=== PATIENT | male | born 1960 | race Caucasian/White ===

== ENCOUNTER 2024-06-05 12:29 | Inpatient (IN) | payer OTHER, SELFPAY ==
[2024-06-05] VITALS (17 sets, daily range): BP systolic 123–187; BP diastolic 74–112; BMI 31.4
--- NOTE | 2024-06-05 05:13 | ED.GENMED ---
History of Present Illness
General
Chief Complaint: Chest Pain
Time Seen by Provider: 06/05/24 05:09
History of Present Illness
History of Present Illness:
TIME OF INITIAL ENCOUNTER: 5:10 AM
HPI: The patient started having some discomfort in the chest described as 'heartburn' that started about 17 hours prior to arrival. He later described a pressure sensation in the upper abdomen/lower chest. He has a history of high blood pressure.
EXAM:
GENERAL: Well appearing in no distress, athletic build
HEENT: Moist oral mucosa
CARDIOVASCULAR: No murmurs, normal heart rate, regular rhythm, No chest wall tenderness
PULMONARY: No respiratory distress, breath sounds are clear and equal
ABDOMEN: Soft with no peritoneal signs, no tenderness
NEUROLOGIC: Excellent strength all extremities, no coordination deficits
PSYCHIATRIC: Appropriate mental status, normal insight and judgement
EXTREMITIES: Nontender, no edema, moves all extremities equally
SKIN: No rash, no lesions
NUMBER AND COMPLEXITY OF PROBLEMS ADDRESSED AT THE ENCOUNTER
� Chronic conditions affecting care: High blood pressure
� Acute Exacerbation and/or Progression of Chronic Illness: This is an acute problem
� Differential Diagnosis includes: STEMI, non-STEMI, GERD, noncardiac chest wall pain
AMOUNT AND/OR COMPLEXITY OF DATA TO BE REVIEWED AND ANALYZED
� I performed an independent evaluation of and my interpretation is:
EKG: Sinus 81, inferior STEMI with reciprocal changes, PVCs noted
CT:
X-rays:
Laboratory Studies: CBC unremarkable, minimal transaminase elevation, renal function normal, troponin pending
Other:
� Review of other/old records: I reviewed records, patient had a relatively unremarkable stress echo [address] Sheikh
� Clinical information was obtained by an independent historian: I spoke to the at bedside
� Prescriptions/Medications Considered but not given:
� Further testing considered but not performed:
RISK OF COMPLICATIONS AND/OR MORBIDITY OR MORTALITY OF PATIENT MANAGEMENT
� Social determinants of health affecting care: Lives at home
� Discussion with other providers: I discussed case with Dr. Lagunas at approximately 5:15 AM
� Escalation of care including admission/observation vs risk of discharge considered: The patient has evidence of STEMI�will be admitted to the hospital
ANY OTHER UPDATES:
5:25 AM: I reassessed patient. The patient does report some improvement of his chest discomfort on the nitroglycerin drip. Overall he states that his pain is much better currently compared to what it was earlier in the morning.
5:40 AM: Dr. Lagunas evaluated patient at bedside and taken patient up to the Digital Retoucher
Phy Exam
Physical Exam
Physical Exam:
See HPI
Scores
Heart Score for Chest Pain Patients
STEMI patient?: Not applicable
Course
Orders/Labs/Results
Orders:
Orders
06/05/24 04:59
Electrocardiogram (*1) Urgent
Reason for Study: Chest Pain
EKG- Treatment ONCE
06/05/24 05:16
Complete Blood Count/With Diff Urgent
Comprehensive Metabolic Panel Urgent
Troponin I Urgent
06/05/24 05:17
Nitroglycerin 100 mg/250 ml [Nitroglycerin Premix] 100 mg in 250 ml .ROUTE .STK-MED
06/05/24 05:30
Nitroglycerin 100 mg/250 ml [Nitroglycerin Premix] 100 mg in 250 ml IV PER PROTOCOL
Initial dose in mcg/min, then titrate:: 5
Titrate to keep:: Chest Pain Free
Titrate by mcg/min:: 5 mcg/min, may increase by 10 mcg/min if dose > 20 mcg/min
Frequency of titrations (minutes):: every 3-5 minutes
Maximum dose in mcg/min:: 200
Begin to taper infusion when:: Remained at goal for 2hrs
Taper by mcg/min:: 5 mcg/min
Frequency of taper (minutes) if patient maintains goal:: 30
Taper to off?: Yes
If infusion off & no longer maintaining goal:: Contact Provider
06/05/24 05:37
Fentanyl Citrate/Pf [Sublimaze] 100 mcg .ROUTE .STK-MED ONE
Midazolam HCl [Versed] 2 mg .ROUTE .STK-MED ONE
Verapamil Injectable [Isoptin/Verapamil Injection] 5 mg .ROUTE .STK-MED ONE
06/05/24 05:38
Heparin 10,000 units .ROUTE .STK-MED ONE
Heparin 1000 Units/500 ml [Heparin] 1,000 units in 500 ml .ROUTE .STK-MED
Heparin Sodium,Porcine/Ns/Pf [Heparin 2000 Units/1000 ml] 2,000 unit in 1,000 ml .ROUTE .STK-MED
Lidocaine HCl/Pf [Xylocaine-Mpf 1% Vial] 100 mg .ROUTE .STK-MED ONE
Nitroglycerin [Tridil] 1,500 mcg .ROUTE .STK-MED ONE
Abnormal Lab Results
06/05/24
05:16
Absolute Monos (auto) 0.7 H 10^3/uL
(0.1-0.6)
Monocytes % 11.0 H %
(1.7-9.3)
Glucose 125 H mg/dl
(70-99)
Calcium 10.3 H mg/dl
(8.4-10.2)
AST 65 H U/L
(17-59)
ALT 63 H U/L
(0-50)
Albumin 5.1 H g/dl
(3.5-5.0)
06/05/24 05:16
06/05/24 05:16
Vital Signs
Initial and Last Documented VS:
Initial Vital Signs
Temp Pulse Resp BP Pulse Ox
36.6 C 80 24 184/106 98
06/05/24 05:02 06/05/24 05:02 06/05/24 05:02 06/05/24 05:02 06/05/24 05:02
Last Documented Vital Signs
Temp Pulse Resp BP Pulse Ox
36.6 C 74 17 186/99 98
06/05/24 05:02 06/05/24 05:26 06/05/24 05:26 06/05/24 05:26 06/05/24 05:26
*Critical Care Note
Total Time (30-74mins, 75-104mins- exclusive of procedures): Not Applicable
ED Attending Note
-
Portions of this chart may have been created with voice recognition software.� Occasional wrong word or��sound alike� substitutions may have occurred due to the inherent limitations of voice recognition software.
Discharge Plan
Departure
Patient Disposition: [employer]
Date of Disposition: 06/05/24
Time of Disposition: 05:17
Presentation/result/management discussed w/ accepting MD/DO: dr lagunas
Discharge Problem:
ST elevation OR (STEMI)
Referrals:
UNKNOWN - PT DOES,NOT KNOW [Unknown Provider] -
Interventions
Interventions:
*Risk Screen - Suicide Last Done: 06/05/24 05:02
*General Assessment Last Done: 06/05/24 05:36
*Neglect/Abuse Screening Last Done: 06/05/24 05:02
*ED COVID-19 Vaccine History Last Done: 06/05/24 05:35
ED- Cardiac Assessment Last Done: 06/05/24 05:30
Discharge Date and Time
Print Language: ESTONIAN
[2024-06-05] MEDS: NITROGLYCERIN PREMIX 250 IV (05:19)
[2024-06-05 05:27] LABS: % Basophils 0.8 % (0-2); % Eosinophils 1.9 % (0-6); % Immature Granulocytes 0.5 % (0-0.5); % Lymphocytes 28.5 % (20.5-51.1); % Neutrophils 57.3 % (42.2-75.2); Absolute Basophils 0.1 10^3/uL (0-0.2); Absolute Eosinophils 0.1 10^3/uL (0-0.7); Absolute Lymphocytes 1.8 10^3/uL (1.2-3.4); Absolute Monocytes 0.7 10^3/uL (0.1-0.6); Absolute Neutrophils 3.7 10^3/uL (1.4-6.5); Hematocrit 47.3 % (39.0-52.0); Hemoglobin 16.3 g/dL (13.0-18.0); Mean Corp Hgb Conc. 34.5 g/dL (33.0-37.0); Mean Corpuscular Hgb 30.8 pg (27.0-31.0); Mean Corpuscular Volume 89.4 fL (80.0-94.0); Mean Platelet Volume 9.2 fL (7.4-10.4); Nucleated Red Blood Cells % 0 % (-); Platelet Count 195 10^3/uL (130-400); Red Blood Cell Count 5.29 10^6/uL (4.70-6.10); Red Cell Dist. Width 13.3 % (11.5-14.5); White Blood Cell Count 6.4 10^3/uL (4.8-10.8)
[2024-06-05 05:37] LABS: ALT (SGPT) 63 U/L (0-50); AST (SGOT) 65 U/L (17-59); Albumin 5.1 g/dl (3.5-5.0); Alkaline Phosphatase 57 U/L (38-126); Blood Urea Nitrogen 12 mg/dl (9-20); Calcium 10.3 mg/dl (8.4-10.2); Carbon Dioxide 25 mmol/L (22-30); Chloride 101 mmol/L (98-107); Estimated Creatinine Clearance 118 ml/min; Glucose 125 mg/dl (70-99); Potassium 4.1 mmol/L (3.5-5.1); Sodium 140 mmol/L (135-145); Total Bilirubin 1.1 mg/dl (0.2-1.3); Total Protein 7.9 g/dl (6.3-8.2); eGFR > 60.00
[2024-06-05 06:01] LABS: Troponin I 0.363 ng/ml
[2024-06-05 06:15] LABS: ACT-LR - POC 244 Seconds (116-155)
--- NOTE | 2024-06-05 06:50 | CON.CAR ---
Medical History
-
Chief Complaint: Chest pain
History of Present Illness:
Dictated. [address] Constantine Vallecillo with 'borderline' HTN and FH premature CAD (dad, sister had CABG 60yo) presents with CP since 1PM yesterday. Pain upper chest 'pressure' - waxing and waning and then became continuous 5 hrs before ER arrival
(5AM). ECG diagnostic for acute inferior STEMI. Taken to cath - IB AK, EF47, single vessel CAD with dRCA total occlusion. Successful PCI with TONG x 1. Plan DAPT, BB, ARB, high intensity statin.
Allergies / Home Medications
Allergy/AdvReac Type Severity Reaction Status Date / Time
No Known Allergies Allergy Verified 06/05/24 05:05
Physical Exam
Vital Signs
Temp Pulse Resp BP Pulse Ox
97.8 F 74 17 186/99 98
06/05/24 05:02 06/05/24 05:26 06/05/24 05:26 06/05/24 05:26 06/05/24 05:26
Lab Results
06/05/24 05:16
06/05/24 05:16
Troponin I 0.363 ng/ml H* 06/05/24 05:16
--- NOTE | 2024-06-05 07:09 | ITS.CL.CATH ---
[facility] - Catheterization
Cardiac Catheterization
Procedure Report:
CARDIAC CATHETERIZATION REPORT
Date of Procedure: 06/05/2024
Referring: Jorge Burns MD ([facility])
Indication: Inferior STEMI x 6 hours duration
�
HEMODYNAMIC DATA
AO: 185/95
LV: 186/21
�
LEFT VENTRICULOGRAPHY: Inferobasal akinesis with EF 48%
�
CORONARY ANGIOGRAPHY
Dominance: Right
Left Main: Normal
LAD: Trivial luminal irregularities
Circumflex: Mild luminal irregularities
RCA: Dominant vessel with total thrombotic occlusion of the distal RCA proximal to the takeoff of the RPDA. There is TWILA grade 0 flow distal to the site of occlusion
Angioplasty: At the conclusion the diagnostic study the patient underwent immediate PCI for evolving inferior STEMI of approximately 6 hours duration. Double bolus Integrilin was administered as he was aspirin na�ve until arriving in the ER. He
had been given aspirin and Brilinta 180 mg chewed. Heparin was used for anticoagulation. A 6 [place]ian JR4 guide was advanced to the RCA. A Hi-Torque floppy was advanced into the distal vessel and with great luck the wire straightened out a 360
degree loop de loop near the vessel origin allowing us to easily pass equipment. The wire passed through the occlusion without difficulty. Predilatation was accomplished with a 2.5 x 20 trek balloon restoring flow and identifying the lesion
location in the distal RCA proximal to the PDA takeoff. A 3.25 x 18 Xience TONG was deployed at 14 arslan then postdilated with a 3.25 NC Euphora to 17 arslan. The final angiographic result was outstanding.. His chest pain resolved following PCI. There
were no procedural complications.
�
Closure Device: None-the procedure was performed via the right radial artery. The Gustavo's test was normal prior to the procedure.
�
Radiation (mGy): 637
DAP (cm2.Gy): 15.3
Fluoroscopy time: 6.7 minutes
�
CONCLUSIONS
1:�Evolving inferior STEMI time 6 hours duration
2:�Systemic hypertension
3. Inferobasal akinesis with EF 48%
4. Single-vessel CAD with total thrombotic distal RCA occlusion
5. Successful stenting of distal RCA occlusion with placement of 3.25 x 18 Xience TONG with outstanding angiographic result
6. DAPT x 12 months with routine post ID care
�
�
Copy to: Constantine Vallecillo MD, Suman Calvo MD
�
Suman Calvo MD, [facility]
[2024-06-05 09:51] LABS: ACT-LR - POC > 397 Seconds (116-155)
--- NOTE | 2024-06-05 10:44 | PTCARENOTE ---
Addendum entered by Margaret Weaver RN 06/05/24 12:45:
R radial band off; gauze and Tegaderm applied. C/d/i. Pt OOB in chair and reports relief from n/v. Call jonnathan w/in reach.
Original Note:
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 Pt c/o chest pressure 2/10. Guidera made aware and PO percocet ordered. Pt w/ n/v; clear, yellow emesis. Cool cloth placed on forehead. R radial band intact. No bleeding/hematoma noted. Activity restrictions reviewed w/ pt.
Verbalizes understanding. Currently in bed; call jonnathan w/in reach.
--- NOTE | 2024-06-05 11:41 | CM ---
Chart reviewed. Patient is independent of ADLS, lives with his in a [address], 3 [address], 0 DME. Plan is for the patient to return home. CM to follow
[2024-06-05 12:21] LABS: Glycohemoglobin (HgbA1c) 5.5 % (4.0-5.6)
--- NOTE | 2024-06-05 12:25 | CM ---
Pricing on Brilinta through the patient's [facility] is $125 for a 30 day supply. The patient has commercial insurance and so he can use the $5 copay card. [facility], so Emily Hatfield is to send over
today for his to strip picker tomorrow
[2024-06-05] MEDS: LOW STRENGTH ASPIRIN 81 MG PO (12:29)
[2024-06-05] MEDS: COZAAR 25 MG PO (12:29)
[2024-06-05] MEDS: LOVENOX SC (17:12)
[2024-06-05] MEDS: LIPITOR 40 MG PO (17:12)
[2024-06-05] MEDS: TYLENOL 650 MG PO (17:13)
[2024-06-05] MEDS: LOPRESSOR 25 MG PO (20:32)
[2024-06-05] MEDS: BRILINTA 90 MG PO (20:32)
--- NOTE | 2024-06-05 21:00 | PTCARENOTE ---
Pt received at change of shift. VSS, SR with PVCs on tele. R radial cath site c/d/i/ with no complications noted. Denies CP. Activity restrictions discussed and pt verbalizes understanding. Can make needs known. Call de santiago within reach.
[2024-06-06] VITALS (10 sets, daily range): BP systolic 109–135; BP diastolic 63–88
--- NOTE | 2024-06-06 | PTCARENOTE ---
Pt noted to have 17 run of VT. Asymptomatic, resting in bed. Buck NIEVES notified, instructed to obtain AM labs early to check electrolytes. Amio bolus ordered, new IV placed and amio bolus administered. Labs sent.
--- NOTE | 2024-06-06 00:35 | W.PN.UPDATE ---
Update Note
Progress Note Update
-pt had several NSVTs 3-12 beats long while sleeping, asymptomatic. s/p RCA stent 06/05. Pt tolerated 25 mg of Lopressor earlier tonight. Currently, in nsr 60s-70s, BP 132/83, not hypoxic pOx 95% on RA.
-will check K and Mg to keep K >4 and Mg>2-->electrolytes ok: K is 4.1, Mg 2.0
-pt received Amio bolus and had another episode of 11 beat NSVT. Amio drip was started.
[2024-06-06] MEDS: CORDARONE 103 MG IV (00:53)
[2024-06-06 01:07] LABS: Hematocrit 43.3 % (39.0-52.0); Hemoglobin 15.4 g/dL (13.0-18.0); Mean Corp Hgb Conc. 35.6 g/dL (33.0-37.0); Mean Corpuscular Hgb 31.2 pg (27.0-31.0); Mean Corpuscular Volume 87.8 fL (80.0-94.0); Mean Platelet Volume 9.6 fL (7.4-10.4); Platelet Count 214 10^3/uL (130-400); Red Blood Cell Count 4.93 10^6/uL (4.70-6.10); Red Cell Dist. Width 13.5 % (11.5-14.5); White Blood Cell Count 9.6 10^3/uL (4.8-10.8)
[2024-06-06] MEDS: TYLENOL 650 MG PO (01:11)
[2024-06-06 01:39] LABS: Blood Urea Nitrogen 12 mg/dl (9-20); Carbon Dioxide 22 mmol/L (22-30); Chloride 104 mmol/L (98-107); Estimated Creatinine Clearance > 125 ml/min; Glucose 110 mg/dl (70-99); HDL Cholesterol 60 mg/dl; LDL Cholesterol, Calculated 110 mg/dl; Potassium 4.1 mmol/L (3.5-5.1); Sodium 137 mmol/L (135-145); Total Cholesterol 203 mg/dl (50-199); Triglyceride 168 mg/dl (10-149); Very Low Density Lipoprotein 33 mg/dl (0-30); eGFR > 60.00
[2024-06-06] MEDS: CORDARONE 518 MG IV (04:24)
--- NOTE | 2024-06-06 05:52 | PTCARENOTE ---
Pt still having frequent PVCs as well as a run of VT post amio bolus. LIZBETH Jane notified and amio gtt ordered and started, see SEP.
[2024-06-06] MEDS: BRILINTA 90 MG PO ×2 (08:24→19:45)
[2024-06-06] MEDS: COZAAR 25 MG PO (08:24)
[2024-06-06] MEDS: LOW STRENGTH ASPIRIN 81 MG PO (08:24)
[2024-06-06] MEDS: LOPRESSOR 25 MG PO ×5 (08:25→22:52)
--- NOTE | 2024-06-06 09:00 | W.PN.CD ---
Today's Communication / Plan
-
Stop IV amiodarone drip
Increase metoprolol to 25 mg 4 times daily with an extra 25 mg now, monitor telemetry
Pricing of GDMT, consider initiation of SGLT2 inhibitor and Entresto prior to discharge.
Impression / Plan
-
STEMI:
-delayed presentation
-S/p PCI to RCA
-DAPT x 12 month
-BB, arb started
-If blood pressure allows will transition to Entresto
-Start MRA tomorrow if blood pressure allows.
-High-dose statin
NSVT:
-asx, multiple runs
-Given VT will try to optimize beta-ash, if persistent would start amiodarone.
-Will stop IV amiodarone, increase beta-ash
-Continue to monitor for full 72 hours post VT
Ischemic CMY:
-no s/o volume overload
-will ask CM to bloom Farxiga,jardiance and Entresto
-If blood pressure room allows start Entresto and MRA.
Subjective:
-he has no complaints of chest pain or shortness of breath no palpitations or dizziness.
Cath 06/05/28:
CONCLUSIONS
1:�Evolving inferior STEMI time 6 hours duration
2:�Systemic hypertension
3. Inferobasal akinesis with EF 48%
4. Single-vessel CAD with total thrombotic distal RCA occlusion
5. Successful stenting of distal RCA occlusion with placement of 3.25 x 18 Xience TONG with outstanding angiographic result
6. DAPT x 12 months with routine post VT care
TTE 06/06/24
CONCLUSIONS
Normal left ventricular chamber size with mildly reduced systolic function.
LVEF 45-50%.
Inferior, inferolateral, and inferoseptal wall hypokinesis.
Stage I diastolic dysfunction.
Normal RV size and function.
No significant valvular disease.
Mildly elevated pulmonary artery pressures (PASP 45 mmHg).
Compared to stress echocardiogram on 09/04/2019, baseline ejection fraction has
decreased from 50-54% to 45-50%.
Physical Exam
Vital Signs/Labs
Vital Signs
Temp Pulse Resp BP Pulse Ox
98.2 F 75 20 135/84 97
06/06/24 07:18 06/06/24 08:25 06/06/24 07:18 06/06/24 08:25 06/06/24 07:21
06/05/24 06/06/24 06/07/24
06:59 06:59 06:59
Actual Weight 104.9 kg
06/06/24 00:50
06/06/24 00:50
Magnesium 2.0 mg/dl (1.6-2.3) 06/06/24 00:50
Triglycerides 168 mg/dl (10-149) H 06/06/24 00:50
LDL Cholesterol, Calc 110 mg/dl 06/06/24 00:50
VLDL Cholesterol, Calc 33 mg/dl (0-30) H 06/06/24 00:50
HDL Cholesterol 60 mg/dl 06/06/24 00:50
LAB Results
06/05/24 06/05/24 06/05/24
05:16 07:00 11:38
Troponin I 0.363 H* Cancelled 52.200 H* D
06/05/24 06/05/24 06/05/24
13:00 16:30 19:00
Troponin I Cancelled 53.200 H* Cancelled
06/05/24
22:07
Troponin I 40.300 H*
Physical Exam
Constitutional: No acute distress and Comfortable
Cardiovascular: Rhythm & rate is regular, Pedal edema is absent, JVD pressure is normal, Systolic murmur absent and Diastolic murmur absent
Respiratory: Respiratory effort normal, Lungs clear to auscul., Wheeze Absent, Crackles Absent and Rhonchi Absent
Neuro/Psych: AO x 3
Other: Cath Site (Right radial artery site well-healed, normal pulse, normal cap refill in hands.)
Data Reviewed
-
Date of Service: June 06, 2024
Medical Decision Making: Review of Case with other Provider (Reviewed with the IVU nursing Flex stop and IV amnio drip and increase beta-ash.)
EKG: Other (Multiple episodes of NSVT on the monitor, otherwise sinus rhythm)
--- NOTE | 2024-06-06 16:00 | PTCARENOTE ---
Patient has been off amiodarone gtt most of shift with no arrhythmia, chest pain, or shortness of breath. He is moving around hallways with family in no distress. RN provided patient with education on all his new meds. He is aware that he will be
observed for another 72 hours.
[2024-06-06] MEDS: LOVENOX 40 MG SC (17:36)
[2024-06-06] MEDS: LIPITOR 80 MG PO (17:36)
[2024-06-06 20:23] LABS: Hepatitis C Antibody Negative (Negative)
--- NOTE | 2024-06-07 03:09 | PTCARENOTE ---
Pt remains in NSR, no PVCs noted during shift. Denies CP. R radial cath site c/d/i. Education provided on activity restrictions and new medications, pt verbalizes understanding. Ambulating independently without difficulty. Call de santiago within
reach.
[2024-06-07 05:32] VITALS: BP 119/70
--- NOTE | 2024-06-07 08:06 | W.PN.CD ---
Today's Communication / Plan
-
Transition metoprolol to succinate after midday dose, will make 50 mg p.o. twice daily.
Monitor on telemetry
Discharge planning for tomorrow.
Impression / Plan
-
STEMI:
-delayed presentation
-S/p PCI to RCA
-DAPT x 12 month
-BB, arb started
-Blood pressure precludes MRA
-High-dose statin
NSVT:
-asx, multiple runs, improved with beta-ash, only 1 ventricular triplet since of my last visit.
-Given MD will try to optimize beta-ash, if persistent would start amiodarone.
-Will transition beta-ash to long-acting formulation.
-Continue to monitor for full 72 hours post MD
Ischemic CMY:
-no s/o volume overload
-will ask CM to kathy Hung --although [employer] class I, can reassess after repeat echo
Subjective:
-he has no complaints of chest pain or shortness of breath no palpitations or dizziness. Ambulating without an issue
Cath 06/05/28:
CONCLUSIONS
1:�Evolving inferior STEMI time 6 hours duration
2:�Systemic hypertension
3. Inferobasal akinesis with EF 48%
4. Single-vessel CAD with total thrombotic distal RCA occlusion
5. Successful stenting of distal RCA occlusion with placement of 3.25 x 18 Xience TONG with outstanding angiographic result
6. DAPT x 12 months with routine post MD care
TTE 06/06/24
CONCLUSIONS
Normal left ventricular chamber size with mildly reduced systolic function.
LVEF 45-50%.
Inferior, inferolateral, and inferoseptal wall hypokinesis.
Stage I diastolic dysfunction.
Normal RV size and function.
No significant valvular disease.
Mildly elevated pulmonary artery pressures (PASP 45 mmHg).
Compared to stress echocardiogram on 09/04/2019, baseline ejection fraction has
decreased from 50-54% to 45-50%.
Physical Exam
Vital Signs/Labs
Vital Signs
Temp Pulse Resp BP Pulse Ox
98 F 65 18 115/77 98
06/07/24 05:29 06/06/24 22:52 06/07/24 05:29 06/06/24 22:52 06/07/24 05:29
06/06/24 00:50
06/06/24 00:50
Magnesium 2.0 mg/dl (1.6-2.3) 06/06/24 00:50
Triglycerides 168 mg/dl (10-149) H 06/06/24 00:50
LDL Cholesterol, Calc 110 mg/dl 06/06/24 00:50
VLDL Cholesterol, Calc 33 mg/dl (0-30) H 06/06/24 00:50
HDL Cholesterol 60 mg/dl 06/06/24 00:50
LAB Results
06/05/24 06/05/24 06/05/24
05:16 07:00 11:38
Troponin I 0.363 H* Cancelled 52.200 H* D
06/05/24 06/05/24 06/05/24
13:00 16:30 19:00
Troponin I Cancelled 53.200 H* Cancelled
06/05/24
22:07
Troponin I 40.300 H*
Physical Exam
Constitutional: No acute distress
Cardiovascular: Rhythm & rate is regular and Pedal edema is absent
Respiratory: Respiratory effort normal, Lungs clear to auscul., Wheeze Absent, Crackles Absent, Rhonchi Absent and Labored respirations
Neuro/Psych: AO x 3
Data Reviewed
-
Date of Service: June 07, 2024
EKG: Other (tele on triplet)
[2024-06-07] MEDS: LOPRESSOR 25 MG PO ×2 (10:02→14:28)
[2024-06-07 10:03] VITALS: BP 134/72
[2024-06-07] MEDS: LOW STRENGTH ASPIRIN 81 MG PO (10:04)
[2024-06-07] MEDS: BRILINTA 90 MG PO ×2 (10:04→20:00)
[2024-06-07] MEDS: COZAAR 25 MG PO (10:04)
[2024-06-07 12:11] VITALS: BP 123/74
--- NOTE | 2024-06-07 12:33 | CM ---
priced meds with pts perscript plan-#[phone] (id# [phone])
Jardiance- $116.30/mo - pt will pay only $10/month with copay card
Farxiga- $110.81/mo - pt will pay $ZERO dollars with copay card
Entresto- $125/month- pt will pay $10/month with the copay card
--- NOTE | 2024-06-07 14:46 | PTCARENOTE ---
Patient remains in SB-NSR with rates 50-70 so far this shift, he is walking around room and unit with family, denies chest pain/shortness of breath. RN reviewed medications with patient and patient family. See MAR/flowsheets for further care
details.
[2024-06-07 17:06] VITALS: BP 122/73
[2024-06-07] MEDS: LOVENOX 40 MG SC (17:08)
[2024-06-07] MEDS: LIPITOR 80 MG PO (17:08)
[2024-06-07 19:05] VITALS: BP 121/62
[2024-06-07] MEDS: TOPROL XL 50 MG PO (19:59)
[2024-06-07 22:38] VITALS: BP 125/81
--- NOTE | 2024-06-08 02:00 | PTCARENOTE ---
Assumed care of the pt @1900. AAOx3 SR occasional PVC's on the monitor, VSS, remains pain free.
[2024-06-08 05:02] VITALS: BP 139/77
[2024-06-08 08:03] VITALS: BP 132/87
[2024-06-08] MEDS: LOW STRENGTH ASPIRIN 81 MG PO (08:10)
[2024-06-08] MEDS: BRILINTA 90 MG PO (08:10)
[2024-06-08] MEDS: COZAAR 25 MG PO (08:10)
[2024-06-08] MEDS: TOPROL XL 50 MG PO (08:11)
--- NOTE | 2024-06-08 08:32 | W.PN.CD ---
Today's Communication / Plan
-
Patient feels well asymptomatic no arrhythmias on telemetry last 24 hours.
Tolerating current medical therapy. Reviewed importance of medications including the importance of dual antiplatelet therapy. Patient is in agreement with compliant with medical therapy.
Plan for discharge today
Impression / Plan
-
STEMI:
-delayed presentation
-S/p PCI to RCA
-DAPT x 12 month
-BB, arb started
-High-dose statin
NSVT:
-asx, runs in first 24 hours.
-No recurrent arrhythmias in last 24 hours.
-Continue Toprol 50 mg twice daily
Ischemic CMY:
-no s/o volume overload
-Continue with beta-sah and ARB.
-Follow-up echo in 3 months
Subjective:
-he has no complaints of chest pain or shortness of breath no palpitations or dizziness. Ambulating without an issue
Cath 06/05/28:
CONCLUSIONS
1:�Evolving inferior STEMI time 6 hours duration
2:�Systemic hypertension
3. Inferobasal akinesis with EF 48%
4. Single-vessel CAD with total thrombotic distal RCA occlusion
5. Successful stenting of distal RCA occlusion with placement of 3.25 x 18 Xience TONG with outstanding angiographic result
6. DAPT x 12 months with routine post [place] care
TTE 06/06/24
CONCLUSIONS
Normal left ventricular chamber size with mildly reduced systolic function.
LVEF 45-50%.
Inferior, inferolateral, and inferoseptal wall hypokinesis.
Stage I diastolic dysfunction.
Normal RV size and function.
No significant valvular disease.
Mildly elevated pulmonary artery pressures (PASP 45 mmHg).
Compared to stress echocardiogram on 09/04/2019, baseline ejection fraction has
decreased from 50-54% to 45-50%.
Physical Exam
Vital Signs/Labs
Vital Signs
Temp Pulse Resp BP Pulse Ox
98.5 F 68 18 139/77 97
06/08/24 08:01 06/08/24 05:02 06/08/24 08:01 06/08/24 05:02 06/08/24 08:01
06/06/24 00:50
06/06/24 00:50
Magnesium 2.0 mg/dl (1.6-2.3) 06/06/24 00:50
Triglycerides 168 mg/dl (10-149) H 06/06/24 00:50
LDL Cholesterol, Calc 110 mg/dl 06/06/24 00:50
VLDL Cholesterol, Calc 33 mg/dl (0-30) H 06/06/24 00:50
HDL Cholesterol 60 mg/dl 06/06/24 00:50
LAB Results
06/05/24 06/05/24 06/05/24
07:00 11:38 13:00
Troponin I Cancelled 52.200 H* D Cancelled
06/05/24 06/05/24 06/05/24
16:30 19:00 22:07
Troponin I 53.200 H* Cancelled 40.300 H*
Physical Exam
Constitutional: No acute distress
Cardiovascular: Rhythm & rate is regular
GI: Soft and Non tender
Neuro/Psych: Alert, Oriented and AO x 3
Data Reviewed
-
Date of Service: June 08, 2024
Medical Decision Making: Reviewed Test Results
EKG: Report Reviewed by me
Medical Tests (PFT, Pathology etc): Report Reviewed by me
Labs: Labs Reviewed by me
--- NOTE | 2024-06-08 08:34 | W.DS.TRANS ---
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
-
Discharge Instructions:
Discharge Diagnosis/Procedures Inferior STEMI, late presentation
Procedure 06/05/2024: PCI to RCA
Ischemic cardiomyopathy
NSVT
Diet 2 Gram Sodium,Low Cholesterol
Activity No strenuous activity
Driving Restrictions No driving for 24 hours
Bathing Restrictions None
Other Services Cardiac Rehab
Instructions:
Stand-Alone Forms: DC Instructions- Cath/EP Lab
Changes to Home Medications: Yes
Discharge Medications:
DC Medications w/original date entered in [facility]
latanoprost 0.005 % eye drops 1 drp ophthalmic (eye) QPM glaucoma 06/05/24
ticagrelor 90 mg tablet (Brilinta) 90 mg PO BID #60 tabs 06/05/24
aspirin 81 mg chewable tablet 81 mg PO DAILY #30 tabs 06/08/24
atorvastatin 80 mg tablet 80 mg PO QPM #30 tabs 06/08/24
losartan 25 mg tablet 25 mg PO DAILY #30 tabs 06/08/24
metoprolol succinate 50 mg tablet,extended release 24 hr 50 mg PO BID #60 tabs 06/08/24
Home Medication Changes
All medications other than latanoprost eyedrops are new.
Pending Results: No
--- NOTE | 2024-06-08 10:35 | PTCARENOTE ---
IV and tele removed. Discharge instructions reviewed w/ pt. Verbalizes understanding. Belongings packed and sent w/ pt. Escorted via wheelchair and staff assist. Discharged to home.
== END 2024-06-08 10:37 | disposition home or self-care (01) | DRG 322 ==
LOC: IVU 12:29
PROVIDERS: ADMITTING PHYSICIAN Internal Medicine Cardiovascular Disease; EMERGENCY PHYSICIAN Emergency Medicine; FAMILY PHYSICIAN Family Medicine
PROC: 027034Z Dilation of Coronary Artery, One Artery with Drug-eluting Intraluminal Device, Percutaneous Approach (ICD-10-PCS; 2024-06-05)
PROC: B2151ZZ Fluoroscopy of Left Heart using Low Osmolar Contrast (ICD-10-PCS; 2024-06-05)
PROC: B2111ZZ Fluoroscopy of Multiple Coronary Arteries using Low Osmolar Contrast (ICD-10-PCS; 2024-06-05)
PROC: 4A023N7 Measurement of Cardiac Sampling and Pressure, Left Heart, Percutaneous Approach (ICD-10-PCS; 2024-06-05)
DX: I21.19 ST elevation (STEMI) myocardial infarction involving other coronary artery of inferior wall (principal); I47.20 Ventricular tachycardia, unspecified; I10 Essential (primary) hypertension; I25.10 Atherosclerotic heart disease of native coronary artery without angina pectoris; I25.5 Ischemic cardiomyopathy
CPT/HCPCS: 80048; 80053; 80061; 83036; 83735; 84484; 85025; 85027; 85347; 86803; 93005; 93306; 93458; 96374; 99285; C1725; C1769; C1874; C1894; C9606; J1327; Q9967

== ENCOUNTER 2024-07-02 09:36 | Emergency (ER) | payer OTHER, SELFPAY ==
[2024-07-02 10:02] LABS: % Basophils 0.5 % (0-2); % Eosinophils 2.5 % (0-6); % Immature Granulocytes 0.3 % (0-0.5); % Lymphocytes 13.3 % (20.5-51.1); % Monocytes 10.5 % (1.7-9.3); % Neutrophils 72.9 % (42.2-75.2); Absolute Eosinophils 0.2 10^3/uL (0-0.7); Absolute Monocytes 0.8 10^3/uL (0.1-0.6); Absolute Neutrophils 5.6 10^3/uL (1.4-6.5); Hematocrit 41.4 % (39.0-52.0); Hemoglobin 14.3 g/dL (13.0-18.0); Mean Corp Hgb Conc. 34.5 g/dL (33.0-37.0); Mean Corpuscular Hgb 30.4 pg (27.0-31.0); Mean Corpuscular Volume 87.9 fL (80.0-94.0); Mean Platelet Volume 10.4 fL (7.4-10.4); Nucleated Red Blood Cells % 0 % (-); Platelet Count 181 10^3/uL (130-400); Red Blood Cell Count 4.71 10^6/uL (4.70-6.10); Red Cell Dist. Width 12.6 % (11.5-14.5); White Blood Cell Count 7.7 10^3/uL (4.8-10.8)
[2024-07-02 10:12] LABS: ALT (SGPT) 25 U/L (0-50); AST (SGOT) 25 U/L (17-59); Albumin 4.2 g/dl (3.5-5.0); Alkaline Phosphatase 49 U/L (38-126); Blood Urea Nitrogen 12 mg/dl (9-20); Calcium 9.8 mg/dl (8.4-10.2); Carbon Dioxide 25 mmol/L (22-30); Chloride 101 mmol/L (98-107); Glucose 112 mg/dl (70-99); Sodium 135 mmol/L (135-145); Total Bilirubin 1.1 mg/dl (0.2-1.3); Total Protein 6.8 g/dl (6.3-8.2); eGFR > 60.00
--- NOTE | 2024-07-02 10:13 | ED.GENMED ---
History of Present Illness
General
Chief Complaint: Breathing Problem
Source: patient, records and spouse
Exam Limitations: none
Time Seen by Provider: 07/02/24 10:05
Nursing documentation reviewed up to this point in time: agreed with
History of Present Illness
History of Present Illness:
64-year-old male with a past medical history of hypertension, hyperlipidemia, CAD status post stent who presents to the emergency department for evaluation of chest pain. Patient was notably admitted to this hospital 06/05/2024�presented with chest
pain found to have inferior STEMI and was taken for cardiac catheterization with Dr. Calvo and had total distal RCA occlusion which was stented. Patient was discharged 06/08/2024. He says that he has been doing well since discharge and had
evaluation for cardiac rehab on Monday that went well�he did the treadmill with no issues. Over the past day or 2 he started to notice chest pain however which prompted him to come to the ER for evaluation. He reports a sharp pain across the lower
chest/ribs that is worse with deep breathing, coughing or sneezing. It has been consistent since onset. He reports mild shortness of breath associated. He denies any significant cough or fever. He denies any swelling or pain in the legs. He has
not had any GI symptoms. He denies any other complaints. He has been compliant with all of his medications including his dual antiplatelet therapy.
Review of Systems
Review of Systems
All Other Systems: ROS reviewed and negative except as documented in HPI and ROS
Constitutional: Denies fever or chills
Respiratory: Reports trouble breathing; Denies cough
Cardiac: Reports chest pain; Denies diaphoresis or palpitations
ABD/GI: Denies abdominal pain, nausea or vomiting
: Denies flank pain
Musculoskeletal: Denies edema, neck pain or back pain
Neurological: Denies dizzy or headache
Phy Exam
Physical Exam
Physical Exam:
General: Awake, alert, oriented x3; no acute distress
Head: Normocephalic, atraumatic
Eyes: Conjunctiva normal
Throat: Airway intact, handling secretions
Neck: Trachea midline, supple without meningismus
Lungs: Clear to auscultation bilaterally, no wheezing, rales, rhonchi
Heart: Regular rate and rhythm, no murmurs, gallops, or rubs
Abd: Soft, non distended, nontender
Neuro: No gross deficits
Extremities: No edema in extremities, warm and well-perfused
Scores
Heart Failure Risk
Heart Failure Risk Score: Not Applicable
Heart Score for Chest Pain Patients
STEMI patient?: Not applicable
Withdrawal Assessment of Alcohol
Withdrawal Assessment Completed?: Not applicable
Course
Orders/Labs/Results
Orders:
Orders
07/02/24 09:39
Electrocardiogram (*1) Urgent
Reason for Study: Chest Pain
07/02/24 09:40
EKG- Treatment ONCE
07/02/24 09:49
C-Reactive Protein Urgent
Complete Blood Count/With Diff Urgent
Comprehensive Metabolic Panel Urgent
Erythrocyte Sed Rate Urgent
PT/INR [Prothrombin Time] Urgent
PTT Urgent
Troponin I Urgent
07/02/24 10:05
CT Chest Pe Study Urgent
Comment:
Reason For Exam: pleuritic chest pain, SOB, recent hospitalization
07/02/24 10:28
Add On- LAB Urgent
Tests Added?: ESR, CRP
07/02/24 13:03
Troponin I Urgent
07/02/24 13:33
Colchicine 0.6 mg PO NOW STA
Abnormal Lab Results
07/02/24
09:49
Absolute Lymphs (auto) 1.0 L 10^3/uL
(1.2-3.4)
Absolute Monos (auto) 0.8 H 10^3/uL
(0.1-0.6)
Lymphocytes % 13.3 L %
(20.5-51.1)
Monocytes % 10.5 H %
(1.7-9.3)
ESR 32 H mm/hour
(0-20)
APTT 35.2 H Sec
(23.4-35.0)
Glucose 112 H mg/dl
(70-99)
C-Reactive Protein 81.80 H mg/L
(0.0-10.00)
07/02/24 09:49
07/02/24 09:49
Vital Signs
Initial and Last Documented VS:
Initial Vital Signs
Temp Pulse Resp Pulse Ox
37.1 C 71 18 98
07/02/24 09:37 07/02/24 09:37 07/02/24 09:37 07/02/24 09:37
Last Documented Vital Signs
Temp Pulse Resp BP Pulse Ox
37.1 C 60 13 133/60 95
07/02/24 09:37 07/02/24 12:30 07/02/24 12:30 07/02/24 12:00 07/02/24 12:30
MDM/Problems Addressed
Differential Diagnosis Includes:
Stent occlusion, PE, pericarditis/Rosie syndrome, pneumothorax, pneumonia
MDM/Problems Addressed:
64-year-old male presents to the emergency room for evaluation of pleuritic chest pain that started 3 weeks after recent STEMI requiring cardiac cath and stent. Vitals and exam as above. EKG shows no STEMI, sinus rhythm. Will send labs including
a CBC and a CMP, ESR, CRP, troponin. Will check CTA to rule out PE with recent hospitalization. Will monitor closely reassess after the above. Discussed with cardiology for evaluation.
Labs reviewed: CBC and CMP unremarkable. Troponin undetectable. CTA chest negative for any acute pathology. CRP was elevated. Clinical suspicion at this point is for post [place] pericarditis. Cardiology evaluated, recommended discharge on
colchicine 0.5 mg twice daily x 3 months they will follow-up with patient in the office. Patient is agreeable to this plan. We spoke about return precautions all questions answered.
Chronic conditions affecting care:
CAD
*Radiology
Radiology exam reviewed: radiology read reviewed
*Pulse Oximetry
Patient hypoxic: no
*EKG
Interpreted by ED Provider?: Yes
Heart Rate: 69
Rate: normal
Rhythm: sinus
Ponce: normal axis
Interval: normal interval
QRS Pattern: normal QRS
Ischemia: other (Inferior infarct age undetermined)
*Critical Care Note
Total Time (30-74mins, 75-104mins- exclusive of procedures): Not Applicable
Data Reviewed
Review of Other/Old Records Reveals: Labs, Records, Operative Reports, Progress Notes and Discharge Summary
Source: patient, records and spouse
Patient Management
Discussion with other providers: Marine Safety Officer (Discussed with licensed home inspector)
ED Attending Note
-
Portions of this chart may have been created with voice recognition software.� Occasional wrong word or��sound alike� substitutions may have occurred due to the inherent limitations of voice recognition software.
Discharge Plan
Departure
Patient with high blood pressure during this ER visit?: No
Discharge Problem:
Rosie's syndrome
Instructions: Pericarditis
Prescriptions:
New
Lodoco 0.5 mg tablet
0.5 mg PO BID 90 Days Qty: 180 0RF
No Action
latanoprost 0.005 % Drops
1 drp OPHTHALMIC (EYE) QPM
Brilinta 90 mg Tablet
90 mg PO BID Qty: 60 11RF
atorvastatin 80 mg Tablet
80 mg PO QPM Qty: 30 3RF
aspirin 81 mg Tablet,Chewable
81 mg PO DAILY Qty: 30 0RF
metoprolol succinate 50 mg Tablet Extended Release 24 Hr
50 mg PO BID Qty: 60 0RF
losartan 25 mg Tablet
25 mg PO DAILY Qty: 30 0RF
Referrals:
David Mark MD [Active] - Keep scheduled appt
Carmine Vallecillo MD [Family Provider] -
Activity Restrictions/Additional Instructions:
Thank you for visiting the Emergency Department at [facility].
1. Please schedule a follow up appointment as directed. Call first thing tomorrow morning to make an appointment.
2. If indicated, please take your medications as instructed and indicated on discharge paperwork.
3. If any of your symptoms do not improve, or persist, or become more severe within 6-12 hours, please return to the emergency department for further care.
4. Please return to the emergency department if you develop a headache, neck pain/stiffness, fever greater than 100.4F, chest pain, shortness of breath, persistent nausea, vomiting, slurred speech, difficulty walking, numbness/tingling, weakness,
signs of infection or any other symptoms that are worrisome to you.
Please call [phone] if you have any questions.
Interventions
Interventions:
*Risk Screen - Suicide Last Done: 07/02/24 09:37
*General Assessment Last Done: 07/02/24 09:37
*Neglect/Abuse Screening Last Done: 07/02/24 09:37
*ED COVID-19 Vaccine History Last Done: 07/02/24 09:37
ED- Cardiac Assessment Last Done: 07/02/24 10:56
ED- Pulmonary Assessment Last Done: 07/02/24 10:56
Discharge Date and Time
Print Language: SYRIAC
[2024-07-02 10:23] LABS: Troponin I < 0.012 ng/ml
[2024-07-02 10:27] LABS: INR 1.05
[2024-07-02 10:28] LABS: APTT 35.2 Sec (23.4-35.0)
[2024-07-02 11:48] LABS: Erythrocyte Sed Rate 32 mm/hour (0-20)
[2024-07-02 11:58] VITALS: BP 122/65
[2024-07-02 12:00] VITALS: BP 133/60
[2024-07-02 13:00] VITALS: BP 113/75
--- NOTE | 2024-07-02 13:32 | CON.CAR ---
Consultation
Consultation Request
Date/Time Consultation Requested: 07/02/24 10 AM
Date/Time Consultation Performed: 07/02/24 10 AM
Requesting Provider: Dr. Narendra Sims Jr.
Performing Provider: Dr. Jose Mark
Reason for Consultation: chest pain
Medical History
-
Chief Complaint: chest pain
History of Present Illness:
Mr. Luna is a 64-year-old man with past medical history significant for hypertension, hyperlipidemia, and coronary artery disease status post recent inferior STEMI with PCI to RCA 06-05-2024. The patient has been doing well post PCI, until 2 days
ago when he developed positional and pleuritic chest pain. The pain is worse when he lies forward and severe enough that he is unable to take a full deep breath. Of note he has been doing well in cardiac rehab using the treadmill without any chest
discomfort. He has no associated symptoms of nausea, diaphoresis, lightheadedness, dizziness, or shortness of breath. He denies cough or fever, or recent illness. He denies swelling or pain in his legs. He is compliant with all medications
including DAPT.
Past Medical History
Past Medical History: CAD, HTN and Hypercholesterolemia
Past Surgical History: None
Social History
Tobacco: Non-Smoker
Allergies / Home Medications
Allergy/AdvReac Type Severity Reaction Status Date / Time
No Known Allergies Allergy Verified 07/02/24 09:38
�Medication �Instructions �Recorded �Confirmed �Type
latanoprost 0.005 % eye drops 1 drp ophthalmic (eye) QPM glaucoma 06/05/24 06/05/24 History
ticagrelor 90 mg tablet (Brilinta) 90 mg PO BID #60 tabs 06/05/24 Rx
aspirin 81 mg chewable tablet 81 mg PO DAILY #30 tabs 06/08/24 Rx
atorvastatin 80 mg tablet 80 mg PO QPM #30 tabs 06/08/24 Rx
losartan 25 mg tablet 25 mg PO DAILY #30 tabs 06/08/24 Rx
metoprolol succinate 50 mg 50 mg PO BID #60 tabs 06/08/24 Rx
tablet,extended release 24 hr
Review of Systems
-
Cardiac: Chest Pain
Physical Exam
Vital Signs
Temp Pulse Resp BP Pulse Ox
37.1 C 60 13 133/60 95
07/02/24 09:37 07/02/24 12:30 07/02/24 12:30 07/02/24 12:00 07/02/24 12:30
Lab Results
07/02/24 09:49
07/02/24 09:49
Troponin I < 0.012 ng/ml 07/02/24 09:49
Physical Exam
General: Well Developed and Well Nourished
Respiratory: Clear
Cardiac: S1/S2 and Regular Rhythm
Skin: Warm
Neuro: AO x 3
Impression / Plan
-
Mr. Riley chest pain is unlikely to be ischemic in nature, given its pleuritic and positional features, negative troponin, and nonischemic ECG. His CTA does not demonstrate significant pulmonary pathology nor does it show pulmonary embolism. His
inflammatory markers are elevated. Overall his presentation is most consistent with post [place] pericarditis. We will treat him with a course of colchicine 0.5 mg twice daily for up to 3 months. He has follow-up scheduled with me already at about
that time and he knows to reach out if his symptoms do not improve over the next several days.
Separately the patient has complained about pain at his cath site which began about 2 weeks after the cath was completed. I performed a bedside ultrasound of the right radial artery which demonstrated pulsatile flow throughout and no evidence of
pseudoaneurysm or abnormality otherwise.
Data Reviewed
-
EKG: Tracing Personally Visualized and interpreted
CT Scan: Image Personally Visualized and interpreted and Discussed with Physician
Labs: Labs Reviewed by me
[2024-07-02 13:45] LABS: Troponin I < 0.012 ng/ml
[2024-07-02 14:00] VITALS: BP 129/78
[2024-07-02] MEDS: COLCHICINE 0.6 MG PO (14:01)
== END 2024-07-02 14:13 | disposition home or self-care (01) ==
LOC: EMR 09:36
PROVIDERS: EMERGENCY PHYSICIAN Emergency Medicine; FAMILY PHYSICIAN Family Medicine; OTHER PHYSICIAN Student in an Organized Health Care Education/Training Program
DX: I24.1 Dressler's syndrome (principal); R07.9 Chest pain, unspecified; R06.02 Shortness of breath; Z79.02 Long term (current) use of antithrombotics/antiplatelets; I25.2 Old myocardial infarction; Z95.5 Presence of coronary angioplasty implant and graft; I10 Essential (primary) hypertension; I25.10 Atherosclerotic heart disease of native coronary artery without angina pectoris
CPT/HCPCS: 99285; 71275; 80053; 84484; 85025; 85610; 85652; 85730; 86140; 93005; Q9967

== ENCOUNTER 2024-07-08 09:51 | Outpatient (RCR) | payer OTHER, SELFPAY | END 2024-07-08 23:59 | disposition home or self-care (01) | LOC: CRHB 09:51 | PROVIDERS: ATTENDING PHYSICIAN Student in an Organized Health Care Education/Training Program; FAMILY PHYSICIAN Family Medicine | DX: I25.10 Atherosclerotic heart disease of native coronary artery without angina pectoris (principal); Z95.5 Presence of coronary angioplasty implant and graft; I25.2 Old myocardial infarction | CPT/HCPCS: G0422; G0423 ==

== ENCOUNTER 2024-08-09 08:58 | Outpatient (RCR) | payer OTHER, SELFPAY | END 2024-08-09 23:59 | disposition home or self-care (01) | LOC: CRHB 08:58 | PROVIDERS: ATTENDING PHYSICIAN Student in an Organized Health Care Education/Training Program; FAMILY PHYSICIAN Family Medicine | DX: I25.2 Old myocardial infarction (principal); I25.10 Atherosclerotic heart disease of native coronary artery without angina pectoris (principal); Z95.5 Presence of coronary angioplasty implant and graft | CPT/HCPCS: G0422; G0423 ==

== ENCOUNTER 2024-09-06 08:45 | Outpatient (RCR) | payer OTHER, SELFPAY | END 2024-09-06 23:59 | disposition home or self-care (01) | LOC: CRHB 08:45 | PROVIDERS: ATTENDING PHYSICIAN Student in an Organized Health Care Education/Training Program; FAMILY PHYSICIAN Family Medicine | DX: I25.2 Old myocardial infarction (principal); I21.01 ST elevation (STEMI) myocardial infarction involving left main coronary artery (principal); Z95.5 Presence of coronary angioplasty implant and graft; I25.10 Atherosclerotic heart disease of native coronary artery without angina pectoris | CPT/HCPCS: G0422; G0423 ==

== ENCOUNTER → 2024-09-09 07:47 | Outpatient (REF) | payer OTHER, SELFPAY | LOC: HWRCS 07:47 | PROVIDERS: ATTENDING PHYSICIAN Nurse Practitioner; FAMILY PHYSICIAN Family Medicine | DX: I25.10 Atherosclerotic heart disease of native coronary artery without angina pectoris (principal); I25.5 Ischemic cardiomyopathy; I10 Essential (primary) hypertension; E78.00 Pure hypercholesterolemia, unspecified | CPT/HCPCS: 93308 ==

== ENCOUNTER 2024-10-02 13:35 | Outpatient (RCR) | payer OTHER, SELFPAY | END 2024-10-02 14:36 | disposition home or self-care (01) | LOC: CRHB 13:35 | PROVIDERS: ATTENDING PHYSICIAN Student in an Organized Health Care Education/Training Program; FAMILY PHYSICIAN Family Medicine | DX: I25.2 Old myocardial infarction (principal); Z95.5 Presence of coronary angioplasty implant and graft; I25.10 Atherosclerotic heart disease of native coronary artery without angina pectoris; I21.01 ST elevation (STEMI) myocardial infarction involving left main coronary artery | CPT/HCPCS: G0422; G0423 ==